=== PATIENT | female | born 1945 ===

== ENCOUNTER 2022-12-13 08:00 | Inpatient (IN) | payer OTHER ==
[~2022-12-13] VITALS: Ht 154.9 cm; Wt 38.1 kg
[2022-12-13] MEDS ORDERED: PROPRANOLOL HCL10 MG PO (10:04)
[2022-12-13] MEDS ORDERED: LANOXIN125 MCG PO (10:06)
[2022-12-13] MEDS ORDERED: LEVO-T50 MCG PO (10:07)
[2022-12-13] MEDS ORDERED: PEPCID AC20 MG PO (10:08)
[2022-12-13] MEDS ORDERED: GABAPENTIN100 M2 PO (10:08)
[2022-12-13] MEDS ORDERED: NAMENDA5 MG PO (10:08)
[2022-12-13] MEDS ORDERED: ETHAMBUTOL HCL400 MG PO (10:09)
[2022-12-13] MEDS ORDERED: RIFAMPIN300 MG PO (10:10)
[2022-12-13] MEDS ORDERED: MOXIFLOXACIN H400 MG PO (10:11)
[2022-12-13] MEDS ORDERED: D3 + K2 DOTS 11 EACH PO (10:11)
[2022-12-17] MEDS ORDERED: PANTOPRAZOLE SO40 MG (09:54)
[2022-12-17] MEDS ORDERED: DICLOFENAC SOD100 GM (09:54)
[2022-12-17] MEDS ORDERED: RIFAMPIN150 MG (09:54)
[2022-12-19] MEDS ORDERED: OXYC1TAB9 PO (06:32)
[2022-12-19] MEDS ORDERED: XARELTO10 MG PO (06:32)
[2022-12-19] MEDS ORDERED: INTEGRA PLUS C1 EACH PO (06:32)
[2022-12-19] MEDS ORDERED: BACTRIM DS TAB1 EACH PO (06:32)
== END 2022-12-19 16:21 | DRG 470 ==
LOC: SURH 12-17 07:00 → O/R 12-17 09:05 → SURH 12-17 16:02
PROVIDERS: ADMIT Orthopaedic Surgery Sports Medicine; ATTEND Orthopaedic Surgery Sports Medicine
PROC: 0SRC0J9 Replacement of Right Knee Joint with Synthetic Substitute, Cemented, Open Approach (ICD-10-PCS; principal; 2022-12-17 07:00)
DX: M17.11 Unilateral primary osteoarthritis, right knee (principal); Z96.651 Presence of right artificial knee joint; E03.9 Hypothyroidism, unspecified